=== PATIENT | female | born 1990 | race Caucasian/White ===

== ENCOUNTER 2018-07-02 08:20 | Emergency (ER) | payer SELFPAY ==
[2018-07-02 08:38] VITALS: BP 125/68
--- NOTE | 2018-07-02 09:17 | UC ---
UC General HPI - HPI Summary HPI Summary: 28-year-old female presents with 8 days of general malaise, shaking chills, myalgias, and anorexia. States 3 days ago she started having some watery diarrhea. 1-2 episodes per day typically after eating. States stool is greenish in color. She has also noted some urinary frequency. Denies fever, recent tick bites, unusual rash, URI symptoms, chest pain, cough, shortness of breath, abdominal pain, dysuria, urgency, or vaginal discharge. Last menstrual period was on 06/21/2018. States it is abnormal in that it only lasted a single day. She did a home test on 06/24/2018 which was negative. No recent travel out of the country, sick contact, or recent antibiotic use. She did recently move locally however states he drinks only bottled water. - History of Current Complaint Chief Complaint: UCGeneralIllness Stated Complaint: BODY ACHES/CHILLS X 8DAYS Time Seen by Provider: 07/02/18 08:48 Hx Obtained From: Patient Hx Last Menstrual Period: 06/21/18 Onset/Duration: Gradual Onset, Lasting Days Pain Intensity: 0 Associated Signs & Symptoms: Positive: Diarrhea, Other - See HPI. Negative: Abdominal Pain, Back Pain, Cough, Dizziness, Dysuria, Fever, Melena, Nausea, SOB - Allergy/Home Medications Allergies/Adverse Reactions: Allergies Allergy/AdvReac Type Severity Reaction Status Date / Time No Known Allergies Allergy Verified 07/02/18 08:38 Home Medications: Home Medications Norethindrone-E.estradiol-Iron [Blisovi Fe 1.5/30 1.5-30 mg-Mcg] 1 tab PO DAILY 07/02/18 [History Confirmed 07/02/18] PMH/Surg Hx/FS Hx/Imm Hx - Additional Past Medical History Additional PMH: Denies significant past medical history Previously Healthy: Yes - Surgical History Surgical History: Yes Surgery Procedure, Year, and Place: C- section. T&A - Family History Known Family History: Positive: Hypertension - father, mother, Diabetes - paternal side Negative: Cardiac Disease - Social History Occupation: Employed Full-time Lives: With Family Alcohol Use: Occasionally Substance Use Type: None Smoking Status (MU): Never Smoked Tobacco Review of Systems Constitutional: Chills, Other - Myalgias Skin: Negative ENT: Negative Respiratory: Negative Cardiovascular: Negative Gastrointestinal: Diarrhea Genitourinary: Frequency Musculoskeletal: Myalgia Is Patient Immunocompromised?: No All Other Systems Reviewed And Are Negative: Yes Physical Exam Triage Information Reviewed: Yes Appearance: Well-Appearing, No Pain Distress, Well-Nourished Vital Signs: Initial Vital Signs Temp 98.6 F 07/02/18 08:32 Pulse 95 07/02/18 08:32 Resp 16 07/02/18 08:32 BP 125/68 07/02/18 08:32 Pulse Ox 100 07/02/18 08:32 Vital Signs Reviewed: Yes Eyes: Positive: Conjunctiva Clear. Negative: Discharge ENT: Positive: Normal ENT inspection Neck: Positive: Supple, Nontender Respiratory: Positive: Lungs clear, Normal breath sounds, No respiratory distress Cardiovascular: Positive: RRR, No Murmur Abdomen Description: Positive: No Organomegaly, Soft, Other: - Mild right lower quadrant tenderness with palpation. No rebound tenderness. Negative psoas sign and obturator sign. Tender, swollen left femoral lymph node.. Negative: CVA Tenderness (R), CVA Tenderness (L), Distended, Guarding Bowel Sounds: Positive: Present Neurological: Positive: Alert Skin Exam: Normal Diagnostics - Laboratory Diagnostic Studies Completed/Ordered: POC UA Trace leukocytes, trace blood, 1+ protein, 3+ ketones, 1+ bilirubin. POC negative. Course/Dx - Course Course Of Treatment: 28 year old female with 8 day history of general malaise, shaking chills, and myalgias. 3 days ago develop some watery diarrhea. 1-2 episodes a day primarily with eating. Exam unremarkable except for some mild RLQ pain without rebound tenderness and a tender, swollen left femoral lymph node. POC UA Trace leukocytes, trace blood, 1+ protein, 3+ ketones, 1+ bilirubin. POC negative. Patient was very tearful, wanting additional work up to evaluate symptoms. Recommend evaluation in ED. Patient agreeable and will transport via private vehicle. - Differential Dx - Multi-Symptom Provider Diagnoses: RLQ pain - Physician Notifications Discussed Patient Care With: Mariam Kessler - [facility] ED Time Discussed With Above Provider: 09:51 Instructed by Provider To: MD Will See In ED Discharge - Sign-Out/Discharge Documenting (check all that apply): Patient Departure All imaging exams completed and their final reports reviewed: No Studies - Discharge Plan Condition: Stable Disposition: HOME-RECOMMEND TO ED Patient Education Materials: Abdominal Pain (ED) Referrals: No Primary Care Phys,NOPCP [Primary Care Provider] - Additional Instructions: There is no clear indication for your symptoms and with the pain in your right lower abdomen on exam I am recommending that you have further evaluation in the emergency room at this time. - Billing Disposition and Condition Condition: STABLE Disposition: Home-Recommend to ED
== END 2018-07-02 09:54 | disposition home health service (06) ==
LOC: UCCORT 08:20
DX: R10.31 Right lower quadrant pain (principal)
CPT/HCPCS: 81003; 84702; 87086; 99212; G0463